=== PATIENT | female | born 1940 | race Caucasian/White ===

== ENCOUNTER → 2016-07-31 | Outpatient (CLI) | payer MEDICARE, OTHER ==
[~2016-07-31] MED LIST: ACTOS PO; ASPIRIN PO; AUGMENTIN875 M1 PO; CARAFATE PO; COMBIVENT U/D3 M2 INH; CRESTOR10 MG PO; DARVOCET-N 1001 TAB PO; ECOTRIN325 MG PO; FERROUS SULFATE PO; FLEXERIL10 M1 PO; GLUCOTROL PO; LANTUS SOLOSTAR SQ; LANTUS100 UNITS/ SUBQ; LIPITOR PO; LODINE PO; LORTAB 5/500 TA1 TA1 PO; MEDROL PO; METFORMIN HCL500 M1 PO; METFORMIN PO; MUCINEX PO; NICOTINE T1 PATCH .2 TOP; NICOTINE TRANSD21 MG EXT; NORVASC PO; PRILOSEC PO; PRILOSEC20 MG PO; TYLOX 5/500 CAP1 CAP PO; VICODIN 5/500 T1 TAB PO; VICODIN PO; WALGREENS PHARMACY; ZOCOR PO
--- NOTE | ~2016-07-31 | US138 ---
[facility] A Service of [facility] RADIOLOGY TEXT RESULTS PATIENT: AUGIE GARG LOCATION: CNIV : 40 UNIT #: [id number] AGE: [address]: Pam Maravilla MD SEX: F ORDER DR: [id number] [facility] [address] [place], [place] [address] [id number] O MR#: [id number] Acc #: [id number] NAME: AUGIE GARG : 1940 SEX: F STUDY DATE/TIME: 07/31/2016 10:59 UNIT: [facility]IV ROOM: STUDY DESCRIPTION: [employer] Attending Physician: Pam Maravilla M.D. Referring Physician: Pam Maravilla M.D. Ordering Physician: Pam Maravilla M.D. Primary Care Physician: Pam Maravilla M.D. MEDICAL IMAGING REPORT This report is preliminary unless electronic signature is present EXAM Left upper extremity arterial duplex scan. HISTORY Left hand and swelling. FINDINGS High resolution B-mode imaging and color flow Doppler analysis was performed of the left upper extremity arteries. All the arteries are patent with a normal pulsatile waveform. Peak systolic velocity in the left subclavian artery is 172 cm per second, axillary artery 51 cm per second, brachial artery 150 cm per second, mid radial artery 147 cm per second, distal radial artery 159 cm per second, mid ulnar artery 168 cm per second, and distal ulnar artery 95 cm per second. The left third digital artery was also evaluated and found to be patent with a peak systolic velocity of 84 cm per second. IMPRESSION Patent left upper extremity arteries. No stenosis, occlusion, or aneurysm is demonstrated. Dictated by... Jonathan Liao M.D. THIS IS AN ELECTRONICALLY VERIFIED REPORT Jonathan Liao M.D. at 08/05/2016 8:33 AM [place] TD: 07/31/2016 14:16 JOB #: [id number] [facility] A Service of [facility] RADIOLOGY TEXT RESULTS PATIENT: AUGIE GARG LOCATION: [facility] : 40 UNIT #: [id number] AGE: [address]: Pam Maravilla MD SEX: F ORDER DR: MEDICAL IMAGING REPORT COPY
== END | disposition home or self-care (01) ==
LOC: CNIV 10:32
DX: R09.89 Other specified symptoms and signs involving the circulatory and respiratory systems (principal); M79.645 Pain in left finger(s); L81.9 Disorder of pigmentation, unspecified; F17.200 Nicotine dependence, unspecified, uncomplicated
CPT/HCPCS: 93931

== ENCOUNTER → 2016-08-09 | Outpatient (CLI) | payer MEDICARE, OTHER ==
--- NOTE | ~2016-08-09 | MY6 ---
[facility] A Service of [facility] RADIOLOGY TEXT RESULTS PATIENT: AUGIE GARG LOCATION: [facility] : 40 UNIT #: [id number] AGE: [address]: Pam Maravilla MD SEX: F ORDER DR: [id number] [place] [address] [place], [place] [address] [id number] O MR#: [id number] Acc #: [id number] NAME: AUGIE GARG. : 1940 SEX: F STUDY DATE/TIME: 08/09/2016 11:04 UNIT: [facility] ROOM: STUDY DESCRIPTION: MY Mammogram Dx Dig Chris Attending Physician: Pam Maravilla M.D. Ordering Physician: Pam Maravilla M.D. Primary Care Physician: Pam Maravilla M.D. MEDICAL IMAGING REPORT This report is preliminary unless electronic signature is present EXAM Bilateral digital diagnostic mammogram and whole breast ultrasound on the right, 08/09/2016. INDICATION 75-year-old female with no personal or family history of breast cancer and a history of benign excisional biopsy on the right, complaining of intermittent diffuse breast pain on the right for the past 3 months. She denies a palpable abnormality. TECHNIQUE CC, MLO, and true lateral views were obtained on the right. Standard screening views were obtained on the left. Whole breast ultrasound on the right was also performed. COMPARISONS 10/12/2012, 07/08/2011, 03/07/2009 FINDINGS Scar marker present on the right along with architectural distortion from prior surgery. The pattern is unchanged. There are scattered fibroglandular densities. There is no new dominant nodule, mass, or suspicious cluster of microcalcifications. Benign calcifications are present. There is no mammographic correlate for the patient's complaint of right-sided breast pain. Ultrasound of the right breast was thereafter performed. ULTRASOUND FINDINGS The patient was initially scanned independently by the technologist and then rescanned in my presence. Imaging of the right breast and the subareolar right breast is negative. There is no solid or cystic mass or persistent shadowing abnormality. There are some prominent ducts in the 12 o'clock position of the right breast. [facility] A Service of [facility] RADIOLOGY TEXT RESULTS PATIENT: AUGIE GARG LOCATION: [facility] : 40 UNIT #: [id number] AGE: [address]: Pam Maravilla MD SEX: F ORDER DR: Imaging findings between modalities are concordant. Absent new or worsening symptoms in either breast, the patient should return for a screening mammogram in 1 year. Findings and recommendations were discussed with the patient and she voiced understanding and agreement. IMPRESSION Benign diagnostic mammogram. Return to annual screening recommended. See discussion above. Patients over the age of 40 are entered into a reminder system with target due date for the next mammogram. A result letter will also be sent to the patient. BIRADS: 2 Benign finding. Dictated by... Benedict Marks M.D. THIS IS AN ELECTRONICALLY VERIFIED REPORT Benedict Marks M.D. at 08/09/2016 3:39 PM DAVID/elena TD: 08/09/2016 15:07 JOB #: [id number] MEDICAL IMAGING REPORT COPY
--- NOTE | ~2016-08-09 | US24 ---
[facility] A Service of [facility] RADIOLOGY TEXT RESULTS PATIENT: AUGIE GARG LOCATION: [facility] : 40 UNIT #: [id number] AGE: [address]: Pam Maravilla MD SEX: F ORDER DR: [id number] [facility] [address] [place], [place] [address] [id number] O MR#: [id number] Acc #: [id number] NAME: AUGIE GARG. : 1940 SEX: F STUDY DATE/TIME: 08/09/2016 11:48 UNIT: [facility] ROOM: STUDY DESCRIPTION: US Breast Unilateral Attending Physician: Pam Maravilla M.D. Ordering Physician: Pam Maravilla M.D. Primary Care Physician: Pam Maravilla M.D. MEDICAL IMAGING REPORT This report is preliminary unless electronic signature is present EXAM Whole breast ultrasound on the right 08/09/2016 Result text under order number (Diagnostic mammogram 08/09/2016). Please see this order for result text. BIRADS: 2 - Benign finding Dictated by... Benedict Marks M.D. THIS IS AN ELECTRONICALLY VERIFIED REPORT Benedict Marks M.D. at 08/09/2016 3:40 PM [place] TD: 08/09/2016 14:59 JOB #: [id number] MEDICAL IMAGING REPORT COPY
== END | disposition home or self-care (01) ==
LOC: CMAM 10:47
DX: N64.4 Mastodynia (principal)
CPT/HCPCS: 76641; G0204